=== PATIENT | female | born 1980 | race Caucasian/White ===

== ENCOUNTER 2018-12-01 05:07 | Day surgery (SDC) | payer BC ==
[~2018-12-01] VITALS: Ht 160 cm; Wt 77.1 kg
[2018-12-01 05:37] LABS: HEMATOCRIT 36.6 % (36.0-48.0); HEMOGLOBIN 12.7 g/dL (12-16); MCH 30.8 pg (26.0-34.0); MCHC 34.7 g/dL (31.0-37.0); MCV 88.6 fL (80.0-100.0); MEAN PLATELET VOLUME 10.9 fL (7.4-10.4); RBC 4.13 10x6/uL (4.00-5.40); RDW 12.4 % (11.5-14.5); WBC 5.1 10x3/uL (4.8-10.8)
[2018-12-01] MEDS ORDERED: ZOLOFT25 MG PO (06:20)
[2018-12-01] MEDS ORDERED: LEVOTHYROXINE100 MCG PO (06:20)
[2018-12-01] MEDS ORDERED: LIPITOR20 MG PO (06:21)
[2018-12-01 06:27] VITALS: Ht 160 cm; Wt 77.1 kg
--- NOTE | 2018-12-05 16:30 | HP ---
PATIENT: PHYLICIA GRECO MEDICAL RECORD: [id number] ACCOUNT: [id number] LOCATION:[facility] : 78 ADMISSION DATE: 12/01/18 PCP: DANNA ROBERT HISTORY AND PHYSICAL EXAMINATION HISTORY OF PRESENT ILLNESS: Phylicia is 38 years old. She has been having recurrent problems with strep tonsillitis. PAST MEDICAL HISTORY: Hypothyroidism. PAST SURGICAL HISTORY: Includes times 3, lithotripsy in 2017. CURRENT MEDICATIONS: Levothyroxine, Zoloft, atorvastatin. ALLERGIES: SULFA. PHYSICAL EXAMINATION: GENERAL: She is healthy-appearing, developmentally normal. FACE: Normal, symmetric, no lesions. EYES: Sclerae and conjunctivae are normal. EARS: Canals and TMs are normal. NOSE: No mass, polyps or drainage. ORAL CAVITY AND OROPHARYNX: Left tonsil is significantly larger than the right, both chronically inflamed with caseous changes. NECK: No masses, no adenopathy. CHEST: Clear. CARDIOVASCULAR: Regular rate and rhythm, no murmur. EXTREMITIES: Normal. IMPRESSION: Chronic tonsillitis and tonsillar asymmetry. PLAN: Tonsillectomy. TRANSINT:[id number] Voice Confirmation ID: [id number] DOCUMENT ID: [id number] POLA RAO MD at 1630 CC: [id number] DICTATION DATE: 11/26/18 1500 FIELD TRAFFIC INVESTIGATOR: 11/26/18 1531 [facility] 12/01/18 [place] [id number] [place] [id number]
--- NOTE | 2018-12-05 16:30 | OP ---
PATIENT NAME: MORALES GRECO MEDICAL RECORD: [id number] :78 LOCATION:[facility] ADMISSION DATE: SURGEON: POLA IVY MD DATE OF OPERATION: 12/01/2018 PREOPERATIVE DIAGNOSIS: Chronic tonsillitis. POSTOPERATIVE DIAGNOSIS: Chronic tonsillitis. PROCEDURE: Tonsillectomy. SURGEON: Pola Ivy MD ANESTHESIA: General orotracheal. BLOOD LOSS: 2 cc. SPECIMENS: Right and left tonsil. COMPLICATIONS: None. DISPOSITION: Recovery stable. DESCRIPTION OF PROCEDURE: She was brought to the operating room and placed in supine position, sedated and intubated by anesthesia. The table was turned 90 degrees. Head drape was applied and she was positioned for tonsillectomy. Using a headlight, a Tomas-Naveed mouth gag was carefully inserted and elevated on a towel on her chest. The palate was examined and palpated. It was retracted. A mirror was used to examine the nasopharynx. There was no significant adenoid tissue. The choanae and eustachian orifices were normal bilaterally. The right tonsil was grasped at the superior pole with a straight Allis clamp. There was tremendous amount of caseous material and tonsilliths. A spatula-tip cautery on a setting of 8 was used to dissect out the tonsil along its capsule, preserving the anterior and posterior tonsillar pillar. The left tonsil was removed in the same fashion. Then, both sides of the nose were irrigated with saline. The pharynx was suctioned. Tonsillar fossae were agitated. Suction cautery on a setting of 18 was used to control minimal oozing. With the field clean and dry, the Tomas-Naveed mouth gag was let down and removed. She was awakened, extubated, and transported to recovery in good condition. No complications. TRANSINT:[id number] Voice Confirmation ID: [id number] DOCUMENT ID: [id number] POLA IVY MD at 1630 CC: [id number] DICTATION DATE: 12/01/18 1054 PERSONAL PROPERTY ASSESSOR: 12/01/18 1107 [facility] 12/01/18 [place] [address]
== END 2018-12-01 11:00 | disposition home or self-care (01) ==
LOC: D.OPS 05:07 → D.PAN 07:30 → D.OPS 11:00
PROVIDERS: Anesthesiology; ATTEND Otolaryngology
DX: J35.01 Chronic tonsillitis (principal)